=== PATIENT | male | born 1980 | race African-American/Black ===

== ENCOUNTER 2016-06-10 12:19 | Emergency (ER) | payer OTHER ==
--- NOTE | ~2016-06-10 | CR173 ---
[facility] A Service of [facility] RADIOLOGY TEXT RESULTS PATIENT: ABHISHEK MARTINEZ LOCATION: CFT[facility] : 78 UNIT #: [id number] AGE: [address]: RAFAEL ALEXANDER SEX: M ORDER DR: [id number] [facility] [address] [place], [place] [address] [id number] E MR#: [id number] Acc #: [id number] NAME: ABHISHEK MARTINEZ : 1980 SEX: M STUDY DATE/TIME: 06/10/2016 11:35 UNIT: [facility] ROOM: STUDY DESCRIPTION: CR Knee 3 Views Rt Attending Physician: Rafael Alexander Aprn Referring Physician: Ellie Self Referred Ordering Physician: Mariza Buck M.D. Primary Care Physician: No Primary Care Physician MEDICAL IMAGING REPORT This report is preliminary unless electronic signature is present EXAM Right knee series, 06/10/2016. COMPARISON STUDIES Right knee series, 12/11/2015. HISTORY Patient tripped and fell on 06/09/2016. Right knee pain in the upper medial aspect of the patella. FINDINGS 3 views of the right knee were obtained. No acute displaced fracture or dislocation. Mild joint effusion cannot be excluded. No radiopaque foreign body in the adjacent soft tissue. Dictated by... Kevin Jackson M.D. THIS IS AN ELECTRONICALLY VERIFIED REPORT Kevin Jackson M.D. at 06/12/2016 10:24 AM CPR/shubham TD: 06/10/2016 13:50 JOB #: [id number] MEDICAL IMAGING REPORT COPY
[~2016-06-10 12:19] MED LIST: BACTRIM DS TABL1 TAB PO; CLEOCIN PO; KEFLEX PO; TYLOX 5/500 CAP1 CAP PO
== END 2016-06-10 13:10 | disposition home or self-care (01) ==
LOC: CED 12:19
DX: S86.911A Strain of unspecified muscle(s) and tendon(s) at lower leg level, right leg, initial encounter (principal); W18.00XA Striking against unspecified object with subsequent fall, initial encounter; Y92.9 Unspecified place or not applicable
CPT/HCPCS: 29540; 73562; 99283

== ENCOUNTER 2016-09-16 10:19 | Emergency (ER) | payer OTHER ==
--- NOTE | ~2016-09-16 | CR127 ---
[facility] A Service of [facility] & [facility] RADIOLOGY TEXT RESULTS PATIENT: ABHISHEK MARTINEZ LOCATION: [place] : 78 UNIT #: [id number] AGE: [address]: Elsie Lala SEX: M ORDER DR: [id number] [facility] [address] [place], [place] [address] [id number] E MR#: [id number] Acc #: [id number] NAME: ABHISHEK MARTINEZ : 1980 SEX: M STUDY DATE/TIME: 09/16/2016 11:34 UNIT: [facility] ROOM: STUDY DESCRIPTION: CR Foot Complete Min 3 View Rt Attending Physician: Elsie Lala Pa-C Ordering Physician: Ed Doctor [id number] [facility] Primary Care Physician: Primary Care Physician No MEDICAL IMAGING REPORT This report is preliminary unless electronic signature is present EXAM Right foot INDICATION Dropped couch on right foot last night with pain in the 4th and 5th toes. FINDINGS Three views of the right foot were obtained. The bones are normal. There is no fracture identified. IMPRESSION Normal right foot. Dictated by... Earl Roa M.D. THIS IS AN ELECTRONICALLY VERIFIED REPORT Earl Roa M.D. at 09/16/2016 4:31 PM Kameron TD: 09/16/2016 12:40 JOB #: [id number] MEDICAL IMAGING REPORT Page 1 of 1 COPY
== END 2016-09-16 12:02 | disposition home or self-care (01) ==
LOC: CFTX 10:19 → CED 10:19 → CFTX 11:48
DX: S90.121A Contusion of right lesser toe(s) without damage to nail, initial encounter (principal); F17.200 Nicotine dependence, unspecified, uncomplicated; W20.8XXA Other cause of strike by thrown, projected or falling object, initial encounter; Y92.009 Unspecified place in unspecified non-institutional (private) residence as the place of occurrence of the external cause
CPT/HCPCS: 73630; 99283; J2270